=== PATIENT | female | born 1975 | race Caucasian/White ===

== ENCOUNTER 2018-04-27 09:44 | Emergency (ER) | payer OTHER ==
[~2018-04-27] VITALS: Ht 172.7 cm; Wt 111.0 kg
[2018-04-27] MEDS ORDERED: DIAZEPAM 5 MG TABLET ONE (10:14)
[2018-04-27] MEDS ORDERED: OXYcodone/APAP 5/325MG TABLET ONE (10:14)
[2018-04-27] MEDS ORDERED: KETOROLAC 30 MG/1 ML ONE (10:14)
[2018-04-27] MEDS ORDERED: OXYcodone/APAP 5/325MG TABLET PO ONE (10:30)
[2018-04-27] MEDS ORDERED: KETOROLAC 30 MG/1 ML IM ONE (10:30)
[2018-04-27] MEDS ORDERED: DIAZEPAM 5 MG TABLET PO ONE (10:30)
[2018-04-27 11:06] VITALS: BP 167/71
== END 2018-04-27 11:08 | disposition home or self-care (01) ==
LOC: ED 10:45
DX: S39.012A Strain of muscle, fascia and tendon of lower back, initial encounter (principal); X58.XXXA Exposure to other specified factors, initial encounter; Y93.89 Activity, other specified; Y92.89 Other specified places as the place of occurrence of the external cause; Y99.8 Other external cause status
CPT/HCPCS: 96372; 99283; J1885

== ENCOUNTER 2018-04-28 09:50 | Emergency (ER) | payer OTHER ==
[~2018-04-28] VITALS: Ht 172.7 cm; Wt 117.0 kg
[2018-04-28 10:21] VITALS: BP 128/92
[2018-04-28] MEDS ORDERED: KETOROLAC 30 MG/1 ML IM ONE (11:00)
[2018-04-28] MEDS ORDERED: OXYcodone/APAP 5/325MG TABLET PO ONE (11:00)
[2018-04-28] MEDS ORDERED: DIAZEPAM 5 MG TABLET PO ONE (11:00)
[2018-04-28] MEDS ORDERED: KETOROLAC 30 MG/1 ML ONE (11:03)
[2018-04-28] MEDS ORDERED: DIAZEPAM 5 MG TABLET ONE (11:04)
[2018-04-28] MEDS ORDERED: OXYcodone/APAP 5/325MG TABLET ONE (11:04)
[2018-04-28 11:18] LABS: MICROSCOPIC NOT IND
[2018-04-28 11:20] LABS: CULTURE INDICATED? NO
== END 2018-04-28 11:58 | disposition home or self-care (01) ==
LOC: ED 11:51
DX: S39.012A Strain of muscle, fascia and tendon of lower back, initial encounter (principal); M51.36 Other intervertebral disc degeneration, lumbar region; G89.29 Other chronic pain; M54.9 Dorsalgia, unspecified; F17.200 Nicotine dependence, unspecified, uncomplicated; X58.XXXA Exposure to other specified factors, initial encounter; Y93.89 Activity, other specified; Y92.89 Other specified places as the place of occurrence of the external cause; Y99.8 Other external cause status
CPT/HCPCS: 72110; 81003; 96372; 99284; J1885

== ENCOUNTER → 2019-03-15 | Outpatient (CLI) | payer MEDICAID, OTHER ==
[~2019-03-15] MED LIST: FENTANYL PF 100 MCG/2ML ONE; MIDAZOLAM 1 MG/ML, 5ML ONE
== END | disposition home or self-care (01) ==
LOC: RAD 09:54
PROVIDERS: ATTEND Nurse Practitioner Family
DX: M54.5 Low back pain (principal); M51.36 Other intervertebral disc degeneration, lumbar region; M51.37 Other intervertebral disc degeneration, lumbosacral region; M48.07 Spinal stenosis, lumbosacral region; M41.86 Other forms of scoliosis, lumbar region; Z79.899 Other long term (current) drug therapy
CPT/HCPCS: 72148; 99156; 99157; J2250; J3010; 80047